=== PATIENT | female | born 1980 | race Caucasian/White ===

== ENCOUNTER 2020-01-31 09:30 | Inpatient (IN) | payer OTHER ==
[2020-01-31 11:51] LABS: BASO % 0.5 % (0-2.0); EOS % 0.6 % (0-4.5); HEMATOCRIT 34.7 % (32.4-45.2); HEMOGLOBIN 11.5 GM/dL (10.7-15.3); LYMPH % 13.3 % (8-40); MCH 27.8 pg (25.7-33.7); MCHC 33.1 g/dl (32.0-36.0); MEAN PLT VOLUME 8.7 fl (7.5-11.1); MONO % 6.1 % (3.8-10.2); NEUT % 79.5 % (42.8-82.8); PLATELET COUNT 247 K/MM3 (134-434); RBC 4.13 M/mm3 (3.60-5.2); RDW 15.3 % (11.6-15.6); WHITE BLOOD COUNT 10.3 K/mm3 (4.0-10.0)
[2020-01-31 11:52] VITALS: BMI 26.5
[2020-01-31 11:57] LABS: INR 0.9 (0.83-1.09); PROTHROMBIN TIME (PATIENT) 10.6 SEC (9.7-13.0)
[2020-01-31 12:00] LABS: ACTIVATED PTT 27.2 SECONDS (25.2-36.5)
[2020-01-31] MEDS ORDERED: DEXTROSE 5%-LACTATED RINGERS 1,000 ML IV SCH (12:00)
--- NOTE | 2020-01-31 12:00 | HP ---
Past Medical History - Primary Care Physician PCP:: Lay Mckay - Admission Chief Complaint: 39 yrs , 40.1 weeks onset LP since 6.00 am History of Present Illness: pnc at [address] [place] [address] pt was evaluated for labor on 01/28/20 . OB progress note reveiwed from 01/28/20 gbs culture taken neg History Source: Patient, Medical Record Limitations to Obtaining History: No Limitations - Past Medical History DIRECT CARE COUNSELOR: No: Migraine, Seizure Cardiovascular: No: HTN Pulmonary: No: Asthma Hepatobiliary: No: Hepatitis B, Hepatitis C ...: 7 ...Para: 6 (6NSVD, ,05/27, 07/03, 04/05,11/06.LD , aa in [facility] , no complicatios ) ...Term: 6 ...LMP: 04/25/19 ... Weeks Gestation by Dates: 40.1 ...EDC by Dates: 01/31/20 ...EDC by Sono: 01/30/20 (40.1 wks ) Heme/Onc: No: Anemia Infectious Disease: No: AIDS, STD's Psych: No: Addictions, Anxiety, Bipolar, Depression, Panic, Psychosis, Schizophrenia, Other - Past Surgical History Past Surgical History: Yes: None Hx Myomectomy: No Hx Transabdominal Cerclage: No - Smoking History Smoking history: Never smoked Have you smoked in the past 12 months: No - Alcohol/Substance Use Hx Alcohol Use: No History of Substance Use: reports: None Home Medications - Allergies Allergies/Adverse Reactions: Allergies Allergy/AdvReac Type Severity Reaction Status Date / Time No Known Allergies Allergy Verified 01/31/20 10:44 - Home Medications Home Medications: Ambulatory Orders 2/Iron/Folic Acid/Om3 [Complete Dha] 1 each PO DAILY #30 combo..pkg 01/28/20 Physical Exam - Maternity Vital Signs: Vital Signs Temperature 98.2 F 01/31/20 11:00 Pulse Rate 58 L 01/31/20 11:00 Respiratory Rate 18 01/31/20 11:00 Blood Pressure 103/54 L 01/31/20 11:00 O2 Sat by Pulse Oximetry (%) Constitutional: Yes: Severe Distress Eyes: Yes: WNL, Occular Prosthesis Neck: Yes: WNL Cardiovascular: Yes: WNL Breast(s): Yes: WNL - Abdominal Exam/OB Fundal Height: 40 Number of Fetuses: Single Presentation: Vertex (exam at 11.10 AM) Contractions: Yes Regularity: Regular (3-5) Intensity: Mod/Strong Monitor Mode: External Heart Rate (range): 130 Heart Rate Location: [facility] Category: II Accelerations: Non-Uniform Decelerations: Variable (down to 80 bpm , with change of position depth of variable less , sometimes category-1 . btb variability normal) - Vaginal Exam/OB Vaginal Bleeding: No Dilatation (cm): 5 Effacement (%): 80 Amniotic Membrane Status: Intact (AROM done , scalp electrode applied) Meconium: Light Presentation: Vertex/Position Station: -1 - Physical Exam Musculoskeletal: Yes: WNL Extremities: Yes: WNL. No: Calf Tenderness Edema: Yes Edema: LLE: 1+, RLE: 1+ Deep Tendon Reflex Grade: Normal +2 ...Motor Strength: WNL Psychiatric: Yes: WNL - Labs Lab Results: Microbiology 01/28/20 10:40 Vaginal Group B Streptococcus Screen (LILLIAN) - Final NO BETA HEMOLYTIC STREPTOCOCCI ISOLATED Laboratory Tests 01/31/20 01/31/20 01/31/20 11:08 11:08 11:08 WBC 10.3 H RBC 4.13 Hgb 11.5 Hct 34.7 Plt Count 247 PT with INR 10.60 INR 0.90 PTT (Actin FS) 27.2 Sodium 139 Potassium 4.1 Chloride 110 H Carbon Dioxide 17 L Anion Gap 12 BUN 9.3 Random Glucose 74 Syphilis Serology 01/31/20 11:08 WBC RBC Hgb Hct Plt Count PT with INR INR PTT (Actin FS) Sodium Potassium Chloride Carbon Dioxide Anion Gap BUN Random Glucose Syphilis Serology Non-reactive Hemorrhage Risk Assessment - Risk Factors Medium Risk Factors: Yes: Greater than 4 previous births Risk Score: 1 Risk Level: Medium Risk Problem List - Problems (1) Post term over 40 weeks Code(s): O48.0 - POST-TERM (2) First stage of labor established Code(s): RWE0613 - (3) AMA (advanced maternal age) multigravida 35+ Code(s): O09.529 - SUPERVISION OF ELDERLY MULTIGRAVIDA, UNSPECIFIED TRIMESTER Assessment/Plan 39 yrs , 40.1 wks in active labor, cat-2 tracing , light mec Plan chage of position, O2 anticipate vag deli 12.05 PM 8-9 cm/90/vx o/+1 st , fhr down to 70 , base line 120-130 btb variablity normal , cat-2 / uc 2-3 min 12.45 PM fully dilated /vx +1/+2 pt pushing , pelvis adequate fhr cat-2 , pt encouraged not to push intermittently , for her to save energy let FHR return to base line , [id number]/120 bpm pt exhausted , expulsive efforts not adequate 1.45PM consent taken for vaccum assist vag del
[2020-01-31 12:15] LABS: BLOOD UREA NITROGEN 9.3 mg/dL (7-18); CALCIUM 8.5 mg/dL (8.5-10.1); CREATININE 0.6 mg/dL (0.55-1.3); POTASSIUM 4.1 mmol/L (3.5-5.1)
[2020-01-31] MEDS ORDERED: OXYTOCIN 20 UNITS in 0.9% NS 20 UNIT/1,000 ML INFUS.BAG IV ONE (12:23)
[2020-01-31] MEDS: OXYTOCIN 20 UNITS in 0.9% NS 20 UNIT/1,000 ML INFUS.BAG IV SCH (14:00)
[2020-01-31] MEDS ORDERED: BENZOCAINE 20% 57 GM BOTTLE TP PRN (14:18)
[2020-01-31] MEDS ORDERED: BISACODYL 10 MG SUPP.RECT RC PRN (14:18)
[2020-01-31] MEDS ORDERED: WITCH HAZEL 50% (TUCKS) 40 PAD/JAR PAD TP PRN (14:18)
[2020-01-31] MEDS ORDERED: BENZOCAINE 28 GM HEMORRHOIDAL OINTMENT TP PRN (14:18)
[2020-01-31] MEDS ORDERED: oxyCODONE HCL 5 MG TABLET PO PRN (14:18)
[2020-01-31] MEDS ORDERED: METHYLERGONOVINE MALEATE 0.2 MG/1 ML AMP IM PRN (14:18)
--- NOTE | 2020-01-31 14:35 | PN ---
Delivery - Delivery Vaginal Delivery: Vacuum Assist (pt was exhausted, expulsive efforts were not adequate pt explained about vaccum assist vag delivery, risk of scalp hematoma & injuries soft parts vagina, cx explained . ex: verified , st cath done 10 ml urine drained . fully dilated , position Lot ,staion +2 descending to +3 when pt pushes . [place] vaccum cup applied . applicatin confirmed . during uc pressure raised to green zone , pt pushing with vaccum pull downward & outward with 2 pulls head delievered in [place] position , in bet UC pressure was released . no pop off. cord around neck tight clamped cut releasd , cup removed .ant shoulder delievered . baby handed over to nursery nurse . neonatilogist present in the room . cord segment saved for cord gas, cord blood collected .Trivascular cord. placenta & membranes removed completely . Meu done ut intact, vagina & cx perineum intact. ebl 300 ml prophylactic Iv pitocin & methergine 0.2 mg im given. Sponge count correct .) EBL (cc): 300 Delivery, Single - Stages of Labor Date 1st Stage Initiatied: 01/31/20 Time 1st Stage Initiated: 04:00 Date 2nd Stage Initiated: 01/31/20 Time 2nd Stage Initiated: 12:45 Date of Delivery: 01/31/20 Time of Delivery: 13:57 Date Placenta Delivered: 01/31/20 Time Placenta Delivered: 14:00 - Condition of Apparatus Lineman/Passenger Conductor Present: Yes Name: Filomena Mcconnell Infant Gender: Male Weight: 7 lb 15 oz Position: Left (cord around neck x1 tight), OA Total Hours ROM (Hrs/Mins): 2hr 50 min - 1 Minute Total Score: 7 5 Minutes Total Score: 9 - Feeding Plan Initial Plan: Elected not to breastfeed exclusively throughout hospitalization Remarks - Remarks Remarks: 39 yrs , 40.1 weeks in labor gbs neg pnc [facility] . ost delivery pt stable
[2020-01-31] MEDS: IBUPROFEN 600 MG TABLET (FP) PO PRN ×2 (14:41→21:05)
[2020-01-31] MEDS ORDERED: IBUPROFEN 600 MG TABLET (FP) PO ONE (14:44)
[2020-01-31 15:24] LABS: CORD BASE EXCESS -8.7 mmol/L (0-2); CORD HCO3 20.6 mmHg (20-29); CORD PCO2 59.3 mmHg (30-78); CORD pH 7.159 (7.14-7.44)
[2020-01-31 15:29] LABS: CORD BASE EXCESS -9.2 mmol/L (0-2); CORD HCO3 18.2 mmHg (20-29); CORD PCO2 44.5 mmHg (30-78); CORD pH 7.23 (7.14-7.44)
[2020-01-31] MEDS: FERROUS SO4 325 MG TABLET (FP) PO SCH (17:43)
[2020-01-31] MEDS: ACETAMINOPHEN 325 MG TABLET (FP) PO PRN (21:06)
[2020-02-01] MEDS: FERROUS SO4 325 MG TABLET (FP) PO SCH ×2 (09:09→17:27)
[2020-02-01] MEDS: PRENATAL VITAMINS W/ FOLIC ACID TABLET (FP) PO SCH (09:10)
[2020-02-01] MEDS: ACETAMINOPHEN 325 MG TABLET (FP) PO PRN ×2 (09:10→17:27)
[2020-02-01] MEDS: IBUPROFEN 600 MG TABLET (FP) PO PRN ×2 (09:11→17:27)
--- NOTE | 2020-02-01 09:31 | PN ---
Post Progress Note - Subjective Subjective: c/o fatigue c/ cramps Post Day: 1 Type of Delivery: Vacuum Assist Vag Del Vital Signs: Vital Signs Temperature 98.2 F 02/01/20 05:55 Pulse Rate 56 L 02/01/20 05:55 Respiratory Rate 18 02/01/20 05:55 Blood Pressure 111/63 02/01/20 05:55 O2 Sat by Pulse Oximetry (%) 99 01/31/20 14:55 Breast Exam: Yes: Soft, Other (not BF ). No: Engorged Uterus: Yes: Fundus Firm, Fundus below umbilicus, Non-tender Lochia: Yes: Rubra Lochia, amount: Small Extremities: Yes: Calves non-tender Perineum: Yes: Intact Activity: Ambulating - Labs Labs: CBC WBC 10.3 K/mm3 (4.0-10.0) H 01/31/20 11:08 RBC 4.13 M/mm3 (3.60-5.2) 01/31/20 11:08 Hgb 11.5 GM/dL (10.7-15.3) 01/31/20 11:08 Hct 34.7 % (32.4-45.2) 01/31/20 11:08 MCV 84.0 fl (80-96) 01/31/20 11:08 MCH 27.8 pg (25.7-33.7) 01/31/20 11:08 MCHC 33.1 g/dl (32.0-36.0) 01/31/20 11:08 RDW 15.3 % (11.6-15.6) 01/31/20 11:08 Plt Count 247 K/MM3 (134-434) 01/31/20 11:08 MPV 8.7 fl (7.5-11.1) 01/31/20 11:08 Absolute Neuts (auto) 8.2 K/mm3 (1.5-8.0) H 01/31/20 11:08 Neutrophils % 79.5 % (42.8-82.8) 01/31/20 11:08 Lymphocytes % 13.3 % (8-40) 01/31/20 11:08 Monocytes % 6.1 % (3.8-10.2) 01/31/20 11:08 Eosinophils % 0.6 % (0-4.5) 01/31/20 11:08 Basophils % 0.5 % (0-2.0) 01/31/20 11:08 Nucleated RBC % 0 % (0-0) 01/31/20 11:08 Problem List - Problems (1) Post term over 40 weeks Code(s): O48.0 - POST-TERM (2) First stage of labor established Code(s): [id number] - (3) AMA (advanced maternal age) multigravida 35+ Code(s): O09.529 - SUPERVISION OF ELDERLY MULTIGRAVIDA, UNSPECIFIED TRIMESTER (4) Encounter for care and examination after delivery Code(s): Z39.2 - ENCOUNTER FOR ROUTINE FOLLOW-UP Assessment/Plan pt stable baby need to be watched for 24 hrs pt wants to give baby for adoption to friend who has been with her all the time continuing care consult pemding discharge tomorrow
[2020-02-01 09:33] LABS: BASO % 0.8 % (0-2.0); EOS % 0.7 % (0-4.5); HEMATOCRIT 35.3 % (32.4-45.2); HEMOGLOBIN 11.5 GM/dL (10.7-15.3); LYMPH % 12.4 % (8-40); MCH 27.5 pg (25.7-33.7); MCHC 32.6 g/dl (32.0-36.0); MEAN CELL VOLUME 84.2 fl (80-96); MEAN PLT VOLUME 8.7 fl (7.5-11.1); MONO % 4.3 % (3.8-10.2); NEUT % 81.8 % (42.8-82.8); PLATELET COUNT 228 K/MM3 (134-434); RBC 4.19 M/mm3 (3.60-5.2); RDW 15.3 % (11.6-15.6); WHITE BLOOD COUNT 10.8 K/mm3 (4.0-10.0)
[2020-02-01] MEDS: OXYTOCIN 20 UNITS in 0.9% NS 20 UNIT/1,000 ML INFUS.BAG IV SCH (20:27)
[2020-02-01] MEDS ORDERED: SENNOSIDES/DOCUSATE COMBO (SENNA PLUS) TABLET (UD) PO PRN (22:00)
[2020-02-02 09:29] VITALS: BP 108/70; PULSE 58; TEMP 98.3
[2020-02-02] MEDS: FERROUS SO4 325 MG TABLET (FP) PO SCH (10:22)
[2020-02-02] MEDS: PRENATAL VITAMINS W/ FOLIC ACID TABLET (FP) PO SCH (10:23)
--- NOTE | 2020-02-02 11:02 | DS ---
Physical Examination Vital Signs: Vital Signs Temperature 98.3 F 02/02/20 08:00 Pulse Rate 58 L 02/02/20 08:00 Respiratory Rate 18 02/02/20 08:00 Blood Pressure 108/70 02/02/20 08:00 O2 Sat by Pulse Oximetry (%) 99 01/31/20 14:55 Findings/Remarks: Unable to speak to patient due to being in the rest room and logistical reasons Labs: CBC, BMP 02/01/20 09:15 01/31/20 11:08 Discharge Summary Problems reviewed: Yes Reason For Visit: LABOR Current Active Problems Encounter for care and examination after delivery (Acute) First stage of labor established (Acute) Post term over 40 weeks (Acute) Procedures: Principal: VD Hospital Course: uncomplicated Plan of Treatment: discharge home and follow up with OBGYN in 2-3 weeks for early PP visit Condition: Stable - Instructions Diet, Activity, Other Instructions: Discharge Instructions * Out of Bed * * Regular Diet * Deana Care * Avoid sex for 6 weeks * rtc 3 weeks for pp f/u If you experience excessive bleeding or fever over 101 degrees, call doctor, the clinic or go to the Emergency Room. Referrals: Lay Mckay MD [Staff Physician] - Disposition: HOME - Home Medications Comprehensive Discharge Medication List: Ambulatory Orders 2/Iron/Folic Acid/Om3 [Complete Dha] 1 each PO DAILY #30 combo..pkg 01/28/20 Acetaminophen [Tylenol .Regular Strength -] 650 mg PO Q3H PRN tablet 02/01/20 Ibuprofen [Motrin -] 600 mg PO Q4H PRN #20 tablet 02/01/20 Vitamins (Sjr) - 1 tab PO DAILY tablet 02/01/20
== END 2020-02-02 13:30 | disposition home or self-care (01) | DRG 560 ==
LOC: JDEL 09:30 → JLDR 10:30 → J3N 16:17
PROVIDERS: ADMIT Obstetrics & Gynecology; ATTEND Obstetrics & Gynecology
PROC: 10D07Z6 Extraction of Products of Conception, Vacuum, Via Natural or Artificial Opening (ICD-10-PCS; principal; 2020-01-31)
PROC: 10907ZC Drainage of Amniotic Fluid, Therapeutic from Products of Conception, Via Natural or Artificial Opening (ICD-10-PCS; 2020-01-31)
PROC: 10H073Z Insertion of Monitoring Electrode into Products of Conception, Via Natural or Artificial Opening (ICD-10-PCS; 2020-01-31)
DX: O48.0 Post-term pregnancy (principal); O76 Abnormality in fetal heart rate and rhythm complicating labor and delivery; O69.1XX0 Labor and delivery complicated by cord around neck, with compression, not applicable or unspecified; Z3A.40 40 weeks gestation of pregnancy; Z37.0 Single live birth
CPT/HCPCS: 36415; 36600; 59409; 80048; 82803; 85025; 85610; 85730; 86780; 86850; 86900; 86901; U0003

== ENCOUNTER 2022-12-26 17:11 | Emergency (ER) | payer OTHER ==
[2022-12-26] MEDS ORDERED: IBUPROFEN 400 MG TABLET (FP) PO ONE ×2 (17:26)
[2022-12-26] MEDS ORDERED: SILVER SULFADIAZINE 1% TOP CREAM 50 GM JAR TP ONE ×2 (17:26→17:52)
[2022-12-26 17:34] VITALS: BP 143/88; PULSE 61; RESP 20; TEMP 99.4; BMI 24.7
== END 2022-12-26 18:48 | disposition home or self-care (01) ==
LOC: FER 17:11
DX: T24.202A Burn of second degree of unspecified site of left lower limb, except ankle and foot, initial encounter (principal); T31.0 Burns involving less than 10% of body surface; X11.0XXA Contact with hot water in bath or tub, initial encounter; Y92.511 Restaurant or cafe as the place of occurrence of the external cause; Y99.0 Civilian activity done for income or pay
CPT/HCPCS: 99283-25